=== PATIENT | male | born 1985 | race Caucasian/White ===

== ENCOUNTER 2016-07-19 00:15 | Emergency (ER) | payer MEDICAID ==
[2016-07-19 00:24] VITALS: BP 155/78
[2016-07-19] MEDS ORDERED: KETOROLAC TROMETHAMINE 60 MG/2 ML VIAL IM ONE ×2 (00:56→01:02)
--- NOTE | 2016-07-19 01:01 | ERNOTE ---
ENT HPI Presenting Symptoms: dental pain Source: patient, family Exam Limitations: no limitations - Immun/Allergies/Home Medications Immunizations: IMMUNIZATION HX Immunizations Up to Date Yes History of Influenza Vaccine Yes Hx Pneumococcal Vaccination No Allergies/Adverse Reactions: Allergies Allergy/AdvReac Type Severity Reaction Status Date / Time No Known Allergies Allergy Unverified 04/23/16 15:32 Home Medications: HOME MEDICATIONS Amox Tr/Potassium Clavulanate [Augmentin 875-125 Tablet] 875 mg PO Q12H #20 tab 07/19/16 [Last Taken Unknown] Nabumetone 750 mg PO BID #20 tablet 07/19/16 [Last Taken Unknown] - History of Present Illness Narrative: Pt states he has had right sided tooth pain for 2 days he is not sure if it is upper or lower, he has symptoms from both, has been using orajel with some limited benefit Severity: Present: severe ENT Location: Present: mouth Prearrival Treatment: Present: over the counter meds Modifying Factors - Improves: Reports: medication Modifying Factors - Worsens: Reports: other - food Associated Symptoms - ENT: Reports: poor solid intake Review of Systems - Review of Systems Constitutional: Absent: recent illness, fever EYE: Present: no symptoms reported ENT: Absent: sore throat, throat swelling Respiratory: Present: no symptoms reported Cardiology: Present: no symptoms reported Gastrointestinal/Abdominal: Present: no symptoms reported Genitourinary: Present: no symptoms reported Musculoskeletal: Present: no symptoms reported Skin: Present: no symptoms reported Neurological: Present: no symptoms reported Endocrine: Present: no symptoms reported Hematologic/Lymphatic: Present: no symptoms reported Psych: Present: no symptoms reported - Patient's Past Medical History Patient History - Medical: No pertinent hx Patient History - Cancer: No Hx of Cancer Patient History - Surgical Procedures: No surgical history, Other - Social History Smoking Status: Current every day smoker Alcohol Use: none Drug Use: none Physical Exam - Physical Exam General Appearance: Present: wd/wn, alert, moderate distress, irritable Ears, Nose, Throat: Present: other - right lower 3rd molar is partially erupted and has erythematous, swollen gingiva surrounding it. right upper 2nd molar has caries but no erythema. No fractures noted Neck: Present: normal inspection, nontender Respiratory: Present: no respiratory distress, no accessory muscle use Back Exam: Present: normal inspection, normal range of motion Extremity Exam: Present: normal inspection, non-tender, no edema, normal range of motion Neurological Exam: Present: alert, oriented, no motor/sensory deficits Skin Exam: Present: normal color, warm/dry. Absent: skin rash Lymphatic Exam: Present: no adenopathy ED Progress - Vital Signs Patient's Vital Signs:: I have reviewed the patient's vital signs. Vital Signs: Vital Signs 07/19/16 00:21 Temperature 36.3 C L Pulse Rate 109 H Respiratory 18 Rate Blood Pressure 155/78 O2 Sat by Pulse 100 Oximetry - Progress/Reassessment Chief Complaint: Dental Problem Departure Clinical Impression: Pain, dental - Departure Disposition: Home Follow Up Needed Condition: Good Instructions: Dental Abscess, [id number] Additional Instructions: Keep your appointment with the dentist to get to the cause of your pain. Prescriptions: Amox Tr/Potassium Clavulanate [Augmentin 875-125 Tablet] 875 mg PO Q12H #20 tab Nabumetone 750 mg PO BID #20 tablet
[2016-07-19] MEDS ORDERED: LIDOCAINE HCL 20 ML VIAL ONE (01:02)
[2016-07-19] MEDS ORDERED: traMADol HCL 50 MG TABLET PO ONE (01:23)
[2016-07-19] MEDS ORDERED: traMADol HCL 50 MG TABLET ONE (01:23)
== END 2016-07-19 01:25 | disposition home or self-care (01) ==
LOC: ER 00:15
DX: K08.89 Other specified disorders of teeth and supporting structures (principal); F17.210 Nicotine dependence, cigarettes, uncomplicated

== ENCOUNTER 2016-11-10 17:58 | Emergency (ER) | payer MEDICAID ==
[2016-11-10] MEDS ORDERED: KETOROLAC TROMETHAMINE 60 MG/2 ML VIAL IM ONE ×2 (18:33→18:41)
--- OUTSIDE RECORDS SUMMARY | 2016-11-10 18:33 | XMS REPORT | Continuity of Care Document ---
:1985 Author Organization [email or web address] [place] [address] Care Team Providers Name Role Phone IreneErlin Primary Care Provider [phone] Source Comments This disclosure is being made pursuant to the [employer] program and contain all information available regarding this patient.[email or web address] Active Allergies and Adverse Reactions No Known Allergies Current Medications Be aware that medications may not be up to date as of this document. Alwaysverify current medications with the patient. Prescription Sig. Disp. Refills Start Date End Date Status haloperidol (HALDOL) 5 Take 5 mg by Active MG tablet mouth once. benztropine (COGENTIN) Take 1 mg by Active 1 MG tablet mouth 2 (two) times daily. penicillin v potassium Take 1 tablet by 28 tablet 0 11/07/2016 Active (VEETID) 500 MG tablet mouth 4 (four) times daily. HYDROcodone-acetaminoph Take 1 tablet by 15 tablet 0 11/07/2016 Active en (NORCO) 5-325 MG per mouth every 6 tablet (six) hours as needed for Pain. Active Problems Not on file Most Recent Encounters Date Type Specialty Providers Description 11/07/2016 Hospital Encounter Emergency Medicine Pain due to dental caries (Primary Dx) Social History Tobacco Use Types Packs/Day Years Used Date Current Every Day Smoker 0.5 Last Filed Vital Signs Vital Sign Reading Time Taken Blood Pressure 132/78 11/07/2016 8:48 PM CDT Pulse 101 11/07/2016 8:48 PM CDT Temperature 37.1 C (98.8 F) 11/07/2016 8:48 PM CDT Respiratory Rate 17 11/07/2016 8:48 PM CDT Height 1.702 m (5' 7") 11/07/2016 8:48 PM CDT Weight 78.019 kg (172 lb) 11/07/2016 8:48 PM CDT Body Mass Index 26.93 11/07/2016 8:48 PM CDT Oxygen Saturation 96% 11/07/2016 8:48 PM CDT Plan of Care Health Maintenance Due Date Last Done Comments Tetanus/Pertussis (1 - Tdap) 2005 Influenza Immunization (#1) 2016 Results from Last 3 Months Not on file
--- NOTE | 2016-11-10 18:34 | ERNOTE ---
Lower Extremity HPI - Narrative Date of Service: 11/10/16 - General Lower Extremities Pain: knee: right Time Seen by Provider: 11/10/16 18:28 Source: patient, family, RN notes reviewed Exam Limitations: no limitations - Immun/Allergies/Home Medications Immunizations: IMMUNIZATION HX Immunizations Up to Date Yes History of Influenza Vaccine Yes Hx Pneumococcal Vaccination Yes Allergies/Adverse Reactions: Allergies Allergy/AdvReac Type Severity Reaction Status Date / Time cefaclor [From Ceclor] AdvReac Verified 11/10/16 18:23 ciprofloxacin [From Cipro] AdvReac Verified 11/10/16 18:23 Penicillins AdvReac Verified 11/10/16 18:23 Sulfa (Sulfonamide AdvReac Verified 11/10/16 18:23 Antibiotics) Home Medications: HOME MEDICATIONS Benztropine Mesylate [Cogentin] 2 mg INJ BID 11/10/16 [Last Taken Unknown] Haloperidol [Haldol] 5 mg PO DAILY 11/10/16 [Last Taken Unknown] Ibuprofen [Motrin] 600 mg PO Q6H PRN #24 tab 11/10/16 [Last Taken Unknown] traMADol HCL [Ultram] 50 mg PO Q6H PRN #4 tablet 11/10/16 [Last Taken Unknown] - History of Present Illness Narrative: 31 y/o male ambulatory to the ED for an injury to his right knee that occurred just [employer]. He was playing basketball and pivoted to the side. He felt a "pop" and began having severe pain in the anterior knee just below the patella. He had an arthroscopic knee surgery 2 years ago on the same knee for an unknown problem. He took Tylenol for pain without any improvement. Occurred: just prior to arrival Location of Incident: [place] Method of Injury: Reports: twisted Associated Symptoms: Reports: popping sensation. Denies: unable to bear weight , snapping, other injuries Subsequent Symptoms: Denies: sensory loss, numbness, motor loss Prior Treament: Reports: similar symptoms before. Denies: recently seen Review of Systems - Review of Systems Constitutional: Present: no symptoms reported EYE: Present: no symptoms reported ENT: Present: no symptoms reported Respiratory: Present: no symptoms reported Cardiology: Present: no symptoms reported Gastrointestinal/Abdominal: Present: no symptoms reported Genitourinary: Present: no symptoms reported Musculoskeletal: Present: joint pain. Absent: joint swelling Skin: Absent: lesions, lumps, change in color Neurological: Absent: weakness, numbness, tingling Endocrine: Present: no symptoms reported Hematologic/Lymphatic: Present: no symptoms reported Psych: Present: no symptoms reported - Patient's Past Medical History Patient History - Medical: No pertinent hx Patient History - Cardiac/Respiratory: No pertinent hx Patient History - Cancer: No Hx of Cancer Patient History - Surgical Procedures: Other Patient History - Other: None - Social History Living Situations: alone Psych History: No pertinent hx Smoking Status: Current every day smoker Alcohol Use: none Drug Use: none - Immunizations Immunizations Up to Date: Yes Hx Pneumococcal Vaccination: Yes History of Influenza Vaccine: Yes Physical Exam - Physical Exam General Appearance: Present: wd/wn, alert, no apparent distress Respiratory: Present: no respiratory distress, no accessory muscle use Cardiovascular/Chest: Present: normal peripheral pulses Extremity Exam: Present: normal inspection, normal range of motion, no edema, other - diffuse tenderness in right anterior knee, no ecchymosis, no deformity, no edema Neurological Exam: Present: alert, oriented, normal mood/affect, no motor/ sensory deficits Skin Exam: Present: normal color, warm/dry ED Progress - Vital Signs Patient's Vital Signs:: I have reviewed the patient's vital signs. Vital Signs: Vital Signs 11/10/16 18:16 Temperature 36.8 C Pulse Rate 92 Respiratory 16 Rate Blood Pressure 129/88 O2 Sat by Pulse 100 Oximetry - X-Ray X-Ray #1 X-Ray: knee Interpretation: Reviewed by me X-ray Comments: TECHNIQUE: 3 views of the right knee. COMPARISONS: None available. Knee 3 Views RT * No definable fracture lucency or cortical discontinuity. There is a well-corticated 7 x 10 mm ovoid ossific fragment, seen associated with the posterior lateral aspect of the patella, which appears to be more posterior to the patella on the lateral image. This fragment is of unknown clinical significance. Could represent sequela previous injury. If the patient has a normal variant bipartite patella, this could potentially represent injury to the synchondrosis and displace unfused ossification center. There is apparent lateral subluxation of the patella on the AP image of the knee. Incidental note of degenerative changes of all 3 compartments of the right knee. Mild soft tissue prominence of the anterior and medial aspects of the knee. Mild joint effusion present. IMPRESSION: 1. Lateral subluxation of the patella. Prepatellar and medial soft tissue swelling. Consider transient dislocation of the patella as a potential mechanism of injury. 2. Indeterminate 7 x 10 mm ovoid ossific fragment as discussed above. 3. Consider follow-up by right knee MRI to further evaluate. Electronically signed by Silvino Navarrete M.D.. - Progress/Reassessment Chief Complaint: Lower Extremity Pain/ Injury Progress:: Unchanged Plan - Plan Plan: Instructed to take ibuprofen for pain - patient asks for a stronger pain med - reluctantly gave him a rx for 4 tablets of tramadol. Patient had been limping on injured leg during visit - noted to ambulate normally once he was in the parking lot. Once in parking lot, he showed his rx to another patient who was waiting outside after just being discharged. Both patients are from [place]. Departure Clinical Impression: Knee sprain Qualifiers: Encounter type: initial encounter Involved ligament of knee: unspecified ligament Laterality: right Qualified Code(s): S83.91XA - Sprain of unspecified site of right knee, initial encounter - Departure Disposition: Home Follow Up Needed Condition: Stable Instructions: Knee Sprain, [id number] Additional Instructions: Ice and elevate Weight bearing as tolerated Wear MANUEL wrap for support as needed Follow up with orthopedics if needed Referrals: Manuel Varghese, PAC [[facility]] - Prescriptions: Ibuprofen [Motrin] 600 mg PO Q6H PRN #24 tab PRN Reason: Pain traMADol HCL [Ultram] 50 mg PO Q6H PRN #4 tablet PRN Reason: Pain
[2016-11-10 19:31] VITALS: BP 114/76
== END 2016-11-10 19:27 | disposition home or self-care (01) ==
LOC: ER 17:58
DX: S83.91XA Sprain of unspecified site of right knee, initial encounter (principal); Y93.67 Activity, basketball